=== PATIENT | male | born 1950 | race Two or more races ===

== ENCOUNTER 2018-07-05 10:46 | Inpatient (IN) | payer MEDICARE ==
[~2018-07-05] VITALS: Ht 177.8 cm; Wt 71.2 kg
--- NOTE | 2018-07-05 10:55 | NUR ---
BIB RA, PATIENT C/O CHEST PAIN X 30 MINUTES PRIOR TO EMS ARRIVAL.
[2018-07-05] MEDS ORDERED: ALBUTEROL FS 2.5 MG/3 ML VIAL.NEB NEB ONE (11:00)
[2018-07-05] MEDS ORDERED: IPRATROPIUM NEB FS 0.5 MG/2.5 ML AMPUL.NEB NEB ONE (11:00)
--- NOTE | 2018-07-05 11:00 | NUR ---
DR LAI AT BEDSIDE
[2018-07-05 11:22] LABS: BASOPHILS % (AUTO) 0.5 % (0.0-2.0); EOSINOPHILS % (AUTO) 1.3 % (0.0-6.0); HEMATOCRIT 37 % (39-51); HEMOGLOBIN 12.1 g/dL (13.5-17.5); LYMPHOCYTES # (AUTO) 0.5 /CMM (0.8-4.8); LYMPHOCYTES % (AUTO) 12.3 % (20.0-44.0); MEAN CORPUSCULAR HGB CONC 33 g/dl (31.0-36.0); MEAN CORPUSCULAR VOLUME 88 fL (80-96); MONOCYTES # (AUTO) 0.3 /CMM (0.1-1.30); MONOCYTES % (AUTO) 7.5 % (2.0-12.0); NEUTROPHILS # (AUTO) 3.5 /CMM (1.8-8.9); NEUTROPHILS % (AUTO) 78.4 % (43.0-81.0); PLATELET COUNT (AUTO) 189 /CMM (150-450); RED BLOOD CELL COUNT(AUTO) 4.17 MIL/uL (4.5-6.0); WHITE BLOOD COUNT (AUTO) 4.5 K/uL (4.3-11.0)
[2018-07-05] MEDS ORDERED: IPRATROPIUM NEB FS 0.5 MG/2.5 ML AMPUL.NEB ONE (11:26)
[2018-07-05] MEDS ORDERED: ALBUTEROL FS 2.5 MG/3 ML VIAL.NEB ONE (11:26)
--- NOTE | 2018-07-05 11:33 | NUR ---
PIV IV INSERTED ON LEFT LEG G 20.
[2018-07-05 11:41] LABS: CALCIUM, SERUM 8.8 mg/dL (8.5-10.1); CARBON DIOXIDE 30 mmol/L (21-32); CHLORIDE 100 mmol/L (98-107); CREATININE 0.9 mg/dL (0.6-1.3); GLUCOSE 171 mg/dL (74-106); POTASSIUM 4.1 mmol/L (3.5-5.1); SODIUM SERUM 136 mmol/L (136-145); UREA NITROGEN, BLOOD 16 mg/dL (7-18)
[2018-07-05 11:52] LABS: ALANINE AMINOTRANSFERASE 29 U/L (12-78); ALBUMIN 3.3 g/dL (3.4-5.0); ALKALINE PHOSPHATASE 112 U/L (46-116); ASPARTATE AMINOTRANSFERASE 23 U/L (15-37); BILIRUBIN,DIRECT 0.1 mg/dL (0.0-0.2); BILIRUBIN,TOTAL 0.3 mg/dL (0.2-1.0); TOTAL PROTEIN, SERUM 6.9 g/dL (6.4-8.2)
--- NOTE | 2018-07-05 12:24 | NUR ---
PANEL ON - CALL PAGED
[2018-07-05] MEDS ORDERED: MORPHINE SULFATE INJ 2 MG/ML DISP.SYRIN IV ONE (12:30)
[2018-07-05] MEDS ORDERED: MORPHINE SULFATE INJ 4 MG/ML DISP.SYRIN ONE (12:30)
--- NOTE | 2018-07-05 12:41 | NUR ---
PAGING PANEL ON-CALL
[2018-07-05] MEDS ORDERED: LORA-259 PO (12:42)
[2018-07-05] MEDS ORDERED: OXYC-454 PO (12:42)
[2018-07-05] MEDS ORDERED: OXYC40TA50 PO (12:42)
[2018-07-05 13:00] VITALS: BP 147/77
--- NOTE | 2018-07-05 13:33 | NUR ---
REPORT GIVEN TO ASPEN RODRIGUEZ FOR MELISSA
--- NOTE | 2018-07-05 13:47 | NUR ---
ADMISSION NOTE PT WAS RECEIVED AT THIS TIME FROM ER. NOTE TO HAVE IV IN RLE #20. A/O X4, AMBULATORY, CURRENTLY ASKING FOR PAIN MEDICATION. SAFETY PRECAUTIONS IN PLACE, CALL LIGHT WITHIN REACH, WILL MONITOR ACCORDINGLY
[2018-07-05] MEDS ORDERED: ONDANSETRON HCL/PF 4 MG/2 ML VIAL IVP PRN (14:00)
[2018-07-05] MEDS ORDERED: NITROGLYCERIN 0.4 MG/TAB BOTTLE SL PRN (14:00)
[2018-07-05] MEDS ORDERED: ACETAMINOPHEN 325 MG TABLET PO PRN (14:00)
[2018-07-05] MEDS ORDERED: MORPHINE SULFATE INJ 2 MG/ML DISP.SYRIN IV PRN (14:00)
[2018-07-05] MEDS: LORAZEPAM 1 MG TABLET PO PRN (14:05)
--- NOTE | 2018-07-05 14:05 | NUR ---
RN NOTE ATIVAN GIVEN AT THIS TIME
[2018-07-05] MEDS: ASPIRIN 81 MG TAB.CHEW PO SCH (14:24)
[2018-07-05] MEDS: METOPROLOL TARTRATE 25 MG TABLET PO SCH ×2 (14:25→17:06)
--- NOTE | 2018-07-05 14:31 | NUR ---
RN NOTE MORPHINE GIVEN AT THIS TIME DUE TO PT COMPLAINT OF CHEST PAIN OF 9 OUT OF 10
[2018-07-05] MEDS: oxyCODONE/APAP (5/325 MG) 1 UDTAB TABLET PO PRN ×2 (15:23→23:17)
--- NOTE | 2018-07-05 15:23 | NUR ---
RN NOTE PERCOCET GIVEN AT THIS TIME DUE TO PT COMPLAINT OF HEADACHE OF 9 OUT OF 10
[2018-07-05 16:00] VITALS: BP 148/82
[2018-07-05] MEDS: oxyCODONE HCL SR 20MG TAB.SR.12H PO PRN (17:12)
--- NOTE | 2018-07-05 17:12 | NUR ---
RN NOTE OXYCONTIN GIVEN AT THIS TIME
[2018-07-05] MEDS ORDERED: oxyCODONE HCL SR 40MG TAB.SR.12H PO PRN ×2 (17:30→21:00)
--- NOTE | 2018-07-05 18:25 | NUR ---
RN CLOSING NOTE PT IN BED AT LOWEST AND LOCKED POSITION, A/O X4, BREATHING EVEN AND UNLABORED, NO DISTRESS NOTED AT THIS TIME, IV IS PATENT AND INTACT, ALL NEEDS ATTENDED TO, SAFETY PRECAUTIONS IN PLACE, CALL LIGHT WITHIN REACH, WILL ENDORSE TO BOX PRESS OPERATOR RN FOR MELISSA.
--- NOTE | 2018-07-05 19:30 | NUR ---
RN NOTES RECEIVED PT. AWAKE ON BED, HEART MONITOR WAS ON STANDBY, NON-COMPLIANT, ALWAYS ASKING FOR PAIN MEDICATION, PAIN MEDICATION IS NOT DUE YET, HE'S TALKING TO HIS ROOM MATE WHAT PAIN MEDICATION HE'S GETTING AND GIVING ADVICE TO OTHER PATIENT WHAT KIND OF MEDICATION HE CAN ASK... CHARGE NURSE MADE AWARE ... WE'RE LOOKING FOR ANOTHER ROOM TO TRANSFER THIS PATIENT SINCE HE EXCHANGING NOTES TO HIS ROOM MATE REGARDING PAIN MEDICATION...
[2018-07-05 20:00] VITALS: BP 174/94
--- NOTE | 2018-07-05 23:13 | NUR ---
RN NOTES COMPLAINED OF BACK PAIN- PERCOCET 1 TAB PO GIVEN ORDERED, V/ STABLE
[2018-07-06] MEDS: LORAZEPAM 1 MG TABLET PO PRN (03:19)
--- NOTE | 2018-07-06 03:19 | NUR ---
RN NOTES PT. IS ASKING FOR ATIVAN AND STATED THAT HE'S FEELING ANXIOUS- ATIVAN 2 MG PO GIVEN ORDERED, V/S STABLE
[2018-07-06 04:00] VITALS: BP 166/94
[2018-07-06] MEDS: oxyCODONE HCL SR 20MG TAB.SR.12H PO PRN ×2 (05:10→11:15)
--- NOTE | 2018-07-06 05:13 | NUR ---
RN NOTES COMPLAINED OF GENERALIZED PAIN- PERCOCET 20MG PO GIVEN ORDERED, V/S STABLE
--- NOTE | 2018-07-06 06:35 | NUR ---
RN NOTES PT.COMPLAINED OF CHEAT PAIN ..BLOOD PRESSURE WAS CHECKED 119/69, PULSE 72... OFFERED NITRO 0.4MG SL FOR CHEST PAIN HE REFUSED AND THEN ASKED FOR BREAKFAST
--- NOTE | 2018-07-06 06:53 | NUR ---
RN NOTES RN NOTES AWAKE, MORNING CARE RENDERED, CALL LIGHT WITHIN REACH, [id number], PT. NEEDS ATTENDED
[2018-07-06 07:08] LABS: BASOPHILS % (AUTO) 0.7 % (0.0-2.0); EOSINOPHILS % (AUTO) 4.7 % (0.0-6.0); HEMATOCRIT 33 % (39-51); HEMOGLOBIN 11.1 g/dL (13.5-17.5); LYMPHOCYTES % (AUTO) 32.7 % (20.0-44.0); MEAN CORPUSCULAR HGB CONC 34 g/dl (31.0-36.0); MEAN CORPUSCULAR VOLUME 87 fL (80-96); MONOCYTES # (AUTO) 0.4 /CMM (0.1-1.30); MONOCYTES % (AUTO) 12.4 % (2.0-12.0); NEUTROPHILS # (AUTO) 1.6 /CMM (1.8-8.9); NEUTROPHILS % (AUTO) 49.5 % (43.0-81.0); PLATELET COUNT (AUTO) 189 /CMM (150-450); RED BLOOD CELL COUNT(AUTO) 3.75 MIL/uL (4.5-6.0); WHITE BLOOD COUNT (AUTO) 3.2 K/uL (4.3-11.0)
--- NOTE | 2018-07-06 07:30 | NUR ---
SCHOOL LABORATORY TECHNICIAN NOTES PATIENT RECEIVED RESTING INSIDE ROOM. AWAKE, ALERT AND ORIENTED X 3, VERBALLY RESPONSIVE AND RESPONDS TO VERBAL AND TACTILE STIMULI. BREATHING EVEN AND UNLABORED. NO ACUTE DISTRESS NOTED AT THIS TIME. PATIENT VERBALIZES FEELING OF PAIN ALL OVER, NO FACIAL GRIMACE NOTED AT THIS TIME, PATIENT FURTHER VERBALIZED, "I JUST HAD HYSTERECTOMY LAST WEEK, AND MY TUBES ARE STILL INTACT". PATIENT AMBULATORY. CONTINUE ON TELEMETRY, NSR 75. MD MADE AWARE. WILL CONTINUE TO MONITOR. BED LOCKED AND IN LOW POSITION. BILATERAL UPPER SIDE RAILS UP AND LOCKED. CALL LIGHT WITHIN EASY REACH
[2018-07-06 07:36] LABS: CALCIUM, SERUM 8.6 mg/dL (8.5-10.1); CREATININE 0.9 mg/dL (0.6-1.3); MAGNESIUM 1.9 mg/dL (1.8-2.4); POTASSIUM 4.3 mmol/L (3.5-5.1)
[2018-07-06 08:00] VITALS: BP 148/95
[2018-07-06] MEDS: ASPIRIN 81 MG TAB.CHEW PO SCH (08:35)
[2018-07-06] MEDS: oxyCODONE/APAP (5/325 MG) 1 UDTAB TABLET PO PRN (08:36)
[2018-07-06] MEDS ORDERED: LISINOPRIL (10MG) 10 MG TABLET PO SCH (09:00)
[2018-07-06] MEDS ORDERED: ATORVASTATIN 40 MG TABLET PO SCH (09:00)
[2018-07-06 11:15] VITALS: BP 143/87
[2018-07-06] MEDS ORDERED: METOPROLOL TARTRATE 25 MG TABLET PO SCH (12:00)
--- NOTE | 2018-07-06 12:35 | NUR ---
Social service consult requested by Dr. Geronimo for homelessness. Pt. is a 68 year old male who was admitted to [facility] for chest pain. SW met with pt. bedside. Pt. is alert and oriented x 4. Pt. is cooperative and pleasant with SW during the assessment. Pt. is from [place] and moved to [facility] recently. Pt. was staying in [facility] until he ran out of money. Pt. is willing to go to a SNF if deemed appropriate. Pt's emergency contact is Nayan Ladd . Pt. receives only $111/month. Pt. denies using cigarettes, alcohol and drugs. Pt. denies any psychiatric diagnoses or hospitalizations. No other social service needs are requested at this time. Pt. pt. is not deemed appropriate for SNF placement SW to offer pt. homeless custodial resources.
--- NOTE | 2018-07-06 13:00 | NUR ---
MS RN NOTES PATIENT FOR CT ANGIOGRAM OF HEART WITH 3D IMAGING. WITH MULTIPLE PIV ATTEMPTS WITH NO SUCCESS TO INSERT G18 OR G20. DR. VALLES MADE AWARE AND GAVE OK FOR MIDLINE INSERTION. ORDER NOTED AND CARRIED OUT. PATIENT MADE AWARE AND VERBALIZED UNDERSTANDING. NURSING SYSTEMS DESIGN ENGINEER MADE AWARE. PICCLINE NURSE MADE AWARE. WILL CONTINUE TO MONITOR
--- NOTE | 2018-07-06 15:19 | NUR ---
MS RN NOTES PATIENT VERBALIZED HE DOESNT WANT TO WAIT FOR CT ANGIOGRAM ANYMORE AND WANTS TO LEAVE HOSPITAL AGAINST MEDICAL ADVICE. ASKED NURSING STAFF TO GIVE HIM THE PAPER AND HE WILL SIGN IT. RISKS AND BENEFITS EXPLAINED TO BUT PATIENT BUT TO NO AVAIL, PATIENT STRONGLY INSISTED THAT HE WANTS TO LEAVE AMA. DR. VALLES MADE AWARE. AMA FORM SIGNED. ALL BELONGINGS COMPLETE ON DISCHARGE, NO REPORT OF MISSING INVENTORY. MIDLINE REMOVED WITH MINIMAL BLEEDING NOTED, PRESSURE DRESSING PLACED ON SITE. PATIENT LEFT UNIT AT 1500 AMBULATORY, ACCOMPANIED BY NURSING STAFF TO OUTSIDE HOSPITAL. PATIENT LEFT AND AMBULATED TO [facility]. LEFT IN STABLE CONDITION. BREATHING EVEN AND UNLABORED. DENIES ANY PAIN OR DISCOMFORT. NURSING LOADING MANAGER MADE AWARE. MADE AWARE.
--- NOTE | 2018-07-06 15:20 | NUR ---
MS RN NOTES ADDENDUM: NO NEW SKIN BREAKDOWN NOTED ON DISCHARGE
== END 2018-07-06 15:00 | disposition left against medical advice (07) | DRG 303 ==
LOC: ER 10:49 → TELE 13:44 → MED 07-06 08:50
PROVIDERS: ADMIT Internal Medicine; ATTEND Internal Medicine
PROC: 05H533Z Insertion of Infusion Device into Right Subclavian Vein, Percutaneous Approach (ICD-10-PCS; principal; 2018-07-06)
PROC: B546ZZA Ultrasonography of Right Subclavian Vein, Guidance (ICD-10-PCS; 2018-07-06)
DX: I25.110 Atherosclerotic heart disease of native coronary artery with unstable angina pectoris (principal); F41.9 Anxiety disorder, unspecified; G89.4 Chronic pain syndrome; I10 Essential (primary) hypertension; J44.9 Chronic obstructive pulmonary disease, unspecified; Z76.5 Malingerer [conscious simulation]
CPT/HCPCS: 36415; 36569; 71045-TC; 80048-TC; 80061-TC; 80076-TC; 83735-TC; 84100-TC; 84484-TC; 85025-TC; 85730-TC; 87081-TC; 93307-TC; G0378; J2270

== ENCOUNTER 2023-05-24 12:09 | Inpatient (IN) | payer MEDICARE, OTHER ==
[~2023-05-24] VITALS: Ht 177.8 cm; Wt 65.8 kg
[~2023-05-24 12:09] MED LIST: ACET325T53 PO; AMIN887L PO; ASCO500C17 PO; ATOR40TA PO; BISA10SU61 RC; DIVA500T2 PO; INSU100I4 SQ; IPRA3AMP23 IH; MAGN400O6 PO; MEGE400O4 PO; METF-442 PO; MULT-447 PO; PRED10TA PO
[2023-05-24 14:21] LABS: BASOPHILS # (AUTO) 0.1 K/uL (0.0-0.2); BASOPHILS % (AUTO) 0.7 % (0.0-2.0); EOSINOPHILS % (AUTO) 0.2 % (0.0-6.0); HEMATOCRIT 41 % (39-51); HEMOGLOBIN 13.4 g/dL (13.5-17.5); LYMPHOCYTES % (AUTO) 8.6 % (20.0-44.0); MEAN CORPUSCULAR HEMOGLOBIN 31 PG (26.0-33.0); MEAN CORPUSCULAR HGB CONC 33 g/dl (31.0-36.0); MEAN CORPUSCULAR VOLUME 94 fL (80-96); MONOCYTES # (AUTO) 0.4 K/uL (0.1-1.30); MONOCYTES % (AUTO) 3.3 % (2.0-12.0); NEUTROPHILS # (AUTO) 9.8 K/uL (1.8-8.9); NEUTROPHILS % (AUTO) 87.2 % (43.0-81.0); PLATELET COUNT (AUTO) 221 K/uL (150-450); RED BLOOD CELL COUNT(AUTO) 4.32 MIL/uL (4.5-6.0); RED CELL DISTRIBUTION WIDTH 15.2 % (11.5-15.0); WHITE BLOOD COUNT (AUTO) 11.2 K/uL (4.3-11.0)
[2023-05-24] MEDS ORDERED: APIX5TAB PO (14:32)
[2023-05-24] MEDS ORDERED: ACET100V5 IH (14:32)
[2023-05-24] MEDS ORDERED: INSU100V28 SQ (14:32)
[2023-05-24] MEDS ORDERED: PANT40TA2 PO (14:32)
[2023-05-24] MEDS ORDERED: LISI-768 PO (14:32)
[2023-05-24] MEDS ORDERED: NA P133E RC (14:32)
[2023-05-24] MEDS ORDERED: LORA-258 PO (14:32)
[2023-05-24] MEDS ORDERED: OXYC10TA49 PO (14:32)
[2023-05-24] MEDS ORDERED: ALBU2.5V38 IH (14:32)
[2023-05-24] MEDS ORDERED: OXYC10TA59 PO (14:32)
[2023-05-24] MEDS ORDERED: IPRA0.2S49 IH (14:32)
[2023-05-24] MEDS ORDERED: GLUC1KIT SQ (14:32)
[2023-05-24] MEDS ORDERED: NALO4SPR NS (14:32)
[2023-05-24 14:58] LABS: CALCIUM, SERUM 9.1 mg/dL (8.5-10.1); CREATININE 0.7 mg/dL (0.6-1.3); POTASSIUM 4.4 mmol/L (3.5-5.1)
[2023-05-24] MEDS ORDERED: ACETAMINOPHEN ES 500 MG TABLET ONE (18:28)
[2023-05-24] MEDS ORDERED: ACETAMINOPHEN ES 500 MG TABLET PO ONE (18:30)
[2023-05-24 19:18] LABS: LYMPHOCYTES % (MANUAL) 12 % (16-48); MONOCYTES % (MANUAL) 5 % (0-11.0); NEUTROPHILS % (MANUAL) 83 (42-76); PLATELET ESTIMATE ADEQUATE
[2023-05-24] MEDS ORDERED: DEXTROSE 50%-WATER 50 ML DISP.SYRIN IV PRN (20:30)
[2023-05-24] MEDS ORDERED: ACETAMINOPHEN 325 MG TABLET PO PRN (20:30)
[2023-05-24] MEDS ORDERED: IV NS 0.9% 1,000 ML IV PRN (20:30)
[2023-05-24] MEDS ORDERED: ALBUTEROL FS 2.5 MG/0.5 ML VIAL.NEB NEB PRN (20:30)
[2023-05-24] MEDS ORDERED: ONDANSETRON HCL/PF 4 MG/2 ML VIAL IVP PRN (20:30)
[2023-05-24] MEDS ORDERED: DIVALPROEX SODIUM 500 MG TABLET.DR PO ONE (21:15)
[2023-05-24] MEDS ORDERED: ATORVASTATIN 40 MG TABLET ONE (21:16)
[2023-05-24] MEDS ORDERED: LORAZEPAM 0.5 MG TABLET ONE (21:20)
[2023-05-24] MEDS: DIVALPROEX SODIUM 500 MG TABLET.DR PO SCH (21:32)
[2023-05-24] MEDS: LORAZEPAM 0.5 MG TABLET PO PRN (21:32)
[2023-05-24] MEDS: ATORVASTATIN 40 MG TABLET PO SCH (21:32)
[2023-05-24] MEDS: BLOOD SUGAR DIAGNOSTIC 1 EACH STRIP VI SCH (22:35)
[2023-05-25] MEDS ORDERED: hydrALAZINE HCL IV 20 MG VIAL ONE ×2 (00:15→05:33)
[2023-05-25] MEDS: hydrALAZINE HCL IV 20 MG VIAL IV PRN ×2 (00:24→06:34)
[2023-05-25] MEDS: DIVALPROEX SODIUM 500 MG TABLET.DR PO SCH ×3 (05:30→20:35)
[2023-05-25] MEDS ORDERED: LORAZEPAM 0.5 MG TABLET ONE ×2 (05:33→13:00)
[2023-05-25] MEDS ORDERED: DIVALPROEX SODIUM 500 MG TABLET.DR PO ONE ×2 (05:33→12:50)
[2023-05-25] MEDS: IPRATROPIUM/ALBUTEROL INHALER IH SCH ×2 (06:00)
[2023-05-25] MEDS: LORAZEPAM 0.5 MG TABLET PO PRN ×3 (06:34→20:35)
[2023-05-25] MEDS: BLOOD SUGAR DIAGNOSTIC 1 EACH STRIP VI SCH ×4 (07:30→22:00)
[2023-05-25] MEDS: PANTOPRAZOLE 40 MG TABLET.DR PO SCH (07:30)
[2023-05-25] MEDS ORDERED: PANTOPRAZOLE 40 MG VIAL ONE (08:26)
[2023-05-25] MEDS ORDERED: APIXABAN 5 MG TABLET ONE (08:26)
[2023-05-25] MEDS ORDERED: DOCUSATE SODIUM 100 MG CAPSULE PO ONE (08:27)
[2023-05-25] MEDS: DOCUSATE SODIUM LIQ 100 MG/10 ML UDC PO SCH ×2 (08:54→18:01)
[2023-05-25] MEDS: APIXABAN 5 MG TABLET PO SCH ×2 (08:54→18:03)
[2023-05-25] MEDS: LISINOPRIL (5MG) 5 MG TABLET PO SCH (09:06)
[2023-05-25] MEDS: POLYETHYLENE GLYCOL 3350 17 GM POWD.PACK PO SCH (09:06)
[2023-05-25 09:42] LABS: BASOPHILS # (AUTO) 0.1 K/uL (0.0-0.2); BASOPHILS % (AUTO) 0.4 % (0.0-2.0); EOSINOPHILS # (AUTO) 0.1 K/uL (0.0-0.7); EOSINOPHILS % (AUTO) 0.5 % (0.0-6.0); HEMATOCRIT 44 % (39-51); HEMOGLOBIN 14.6 g/dL (13.5-17.5); LYMPHOCYTES # (AUTO) 1.8 K/uL (0.8-4.8); LYMPHOCYTES % (AUTO) 13.7 % (20.0-44.0); MEAN CORPUSCULAR HEMOGLOBIN 31 PG (26.0-33.0); MEAN CORPUSCULAR HGB CONC 34 g/dl (31.0-36.0); MEAN CORPUSCULAR VOLUME 92 fL (80-96); MONOCYTES % (AUTO) 7.8 % (2.0-12.0); NEUTROPHILS # (AUTO) 10.1 K/uL (1.8-8.9); NEUTROPHILS % (AUTO) 77.6 % (43.0-81.0); PLATELET COUNT (AUTO) 260 K/uL (150-450); RED BLOOD CELL COUNT(AUTO) 4.73 MIL/uL (4.5-6.0); RED CELL DISTRIBUTION WIDTH 15.1 % (11.5-15.0)
[2023-05-25 09:54] LABS: ALANINE AMINOTRANSFERASE 19 U/L (12-78); ALKALINE PHOSPHATASE 78 U/L (46-116); ASPARTATE AMINOTRANSFERASE 15 U/L (15-37); BILIRUBIN,TOTAL 0.6 mg/dL (0.2-1.0); CALCIUM, SERUM 9.2 mg/dL (8.5-10.1); CARBON DIOXIDE 28 mmol/L (21-32); CHLORIDE 93 mmol/L (98-107); CREATININE 0.5 mg/dL (0.6-1.3); GLUCOSE 111 mg/dL (74-106); MAGNESIUM 1.5 mg/dL (1.8-2.4); PHOSPHORUS 4.2 mg/dL (2.5-4.9); POTASSIUM 3.7 mmol/L (3.5-5.1); SODIUM SERUM 130 mmol/L (136-145); TOTAL PROTEIN, SERUM 7.2 g/dL (6.4-8.2); UREA NITROGEN, BLOOD 12 mg/dL (7-18)
[2023-05-25] MEDS ORDERED: ALBUTEROL FS 2.5 MG/0.5 ML VIAL.NEB ONE (13:37)
[2023-05-25] MEDS ORDERED: IPRATROPIUM NEB FS 0.5 MG/2.5 ML AMPUL.NEB ONE (13:37)
[2023-05-25] MEDS: ALBUTEROL FS 2.5 MG/0.5 ML VIAL.NEB HHN SCH ×2 (13:43→20:22)
[2023-05-25] MEDS: IPRATROPIUM NEB FS 0.5 MG/2.5 ML AMPUL.NEB NEB SCH ×2 (13:43→20:22)
[2023-05-25 13:44] VITALS: O2SAT 94
[2023-05-25 13:59] VITALS: O2SAT 97
[2023-05-25 18:53] VITALS: BP 129/119; TEMP 98.2; O2SAT 97
[2023-05-25 20:19] VITALS: O2SAT 92
[2023-05-25 20:24] VITALS: O2SAT 92
[2023-05-25] MEDS: ATORVASTATIN 40 MG TABLET PO SCH (20:35)
[2023-05-25] MEDS: *INSULIN REGULAR(HUMULIN R)HUM 100 UNIT/ML VIAL SQ PRN ×2 (20:55→21:05)
[2023-05-26] VITALS (7 sets, daily range): BP systolic 156; BP diastolic 90; TEMP 98.2; O2SAT 93–100
[2023-05-26] MEDS: ALBUTEROL FS 2.5 MG/0.5 ML VIAL.NEB HHN SCH ×4 (01:30→20:16)
[2023-05-26] MEDS: IPRATROPIUM NEB FS 0.5 MG/2.5 ML AMPUL.NEB NEB SCH ×4 (01:30→20:16)
[2023-05-26] MEDS: MORPHINE SULFATE INJ 2 MG/ML DISP.SYRIN IV PRN ×4 (02:37→20:59)
[2023-05-26] MEDS: DIVALPROEX SODIUM 500 MG TABLET.DR PO SCH ×3 (05:14→21:01)
[2023-05-26] MEDS: LORAZEPAM 0.5 MG TABLET PO PRN ×2 (05:14→18:49)
[2023-05-26 06:56] LABS: BASOPHILS # (AUTO) 0.1 K/uL (0.0-0.2); BASOPHILS % (AUTO) 0.9 % (0.0-2.0); EOSINOPHILS # (AUTO) 0.1 K/uL (0.0-0.7); HEMATOCRIT 42 % (39-51); HEMOGLOBIN 14.3 g/dL (13.5-17.5); LYMPHOCYTES # (AUTO) 1.8 K/uL (0.8-4.8); LYMPHOCYTES % (AUTO) 17.2 % (20.0-44.0); MEAN CORPUSCULAR HEMOGLOBIN 32 PG (26.0-33.0); MEAN CORPUSCULAR HGB CONC 34 g/dl (31.0-36.0); MEAN CORPUSCULAR VOLUME 92 fL (80-96); MONOCYTES # (AUTO) 0.9 K/uL (0.1-1.30); MONOCYTES % (AUTO) 8.5 % (2.0-12.0); NEUTROPHILS # (AUTO) 7.5 K/uL (1.8-8.9); NEUTROPHILS % (AUTO) 72.4 % (43.0-81.0); PLATELET COUNT (AUTO) 260 K/uL (150-450); RED BLOOD CELL COUNT(AUTO) 4.53 MIL/uL (4.5-6.0); RED CELL DISTRIBUTION WIDTH 15.3 % (11.5-15.0); WHITE BLOOD COUNT (AUTO) 10.3 K/uL (4.3-11.0)
[2023-05-26 07:17] LABS: CALCIUM, SERUM 9.6 mg/dL (8.5-10.1); CREATININE 0.6 mg/dL (0.6-1.3); MAGNESIUM 1.6 mg/dL (1.8-2.4); PHOSPHORUS 5.1 mg/dL (2.5-4.9); POTASSIUM 3.7 mmol/L (3.5-5.1)
[2023-05-26] MEDS: BLOOD SUGAR DIAGNOSTIC 1 EACH STRIP VI SCH ×4 (07:30→21:05)
[2023-05-26 07:34] LABS: THYROID STIMULATING HORMONE 1.376 uIU/mL (0.358-3.74); URIC ACID 4.9 mg/dL (2.6-7.2)
[2023-05-26] MEDS: LISINOPRIL (5MG) 5 MG TABLET PO SCH (08:29)
[2023-05-26] MEDS: DOCUSATE SODIUM LIQ 100 MG/10 ML UDC PO SCH ×2 (08:29→16:32)
[2023-05-26] MEDS: PANTOPRAZOLE 40 MG TABLET.DR PO SCH (08:29)
[2023-05-26] MEDS: POLYETHYLENE GLYCOL 3350 17 GM POWD.PACK PO SCH (08:30)
[2023-05-26] MEDS: *INSULIN REGULAR(HUMULIN R)HUM 100 UNIT/ML VIAL SQ PRN ×2 (08:31→21:09)
[2023-05-26] MEDS: APIXABAN 5 MG TABLET PO SCH ×2 (08:32→16:31)
[2023-05-26] MEDS: METOPROLOL TARTRATE 25 MG TABLET PO SCH ×2 (09:59→21:01)
[2023-05-26] MEDS ORDERED: MAGNESIUM OXIDE 400 MG TABLET PO ONE (11:00)
[2023-05-26] MEDS: MAGNESIUM OXIDE 400 MG TABLET PO SCH ×2 (11:15→21:01)
[2023-05-26 11:26] LABS: LYMPHOCYTES % (MANUAL) 14 % (16-48); NEUTROPHILS % (MANUAL) 75 (42-76)
[2023-05-26 11:27] LABS: ANISOCYTOSIS 1+; BASOPHILS % (MANUAL) 0 % (0.0-2.0); EOSINOPHILS % (MANUAL) 2 % (0-4); MONOCYTES % (MANUAL) 9 % (0-11.0); PLATELET ESTIMATE ADEQUATE
[2023-05-26] MEDS: INSULIN REGULAR, HUMAN 100 UNIT/ML 3 ML VIAL SQ PRN (12:24)
[2023-05-26] MEDS: GLUCERNA SHAKE 237 ML CAN PO SCH (16:31)
[2023-05-26] MEDS: ATORVASTATIN 40 MG TABLET PO SCH (21:01)
[2023-05-27] VITALS (8 sets, daily range): BP systolic 153–170; BP diastolic 76–97; TEMP 97.6–98; O2SAT 92–99
[2023-05-27] MEDS: MORPHINE SULFATE INJ 2 MG/ML DISP.SYRIN IV PRN ×4 (01:16→14:06)
[2023-05-27] MEDS: IPRATROPIUM NEB FS 0.5 MG/2.5 ML AMPUL.NEB NEB SCH ×3 (02:23→13:30)
[2023-05-27] MEDS: ALBUTEROL FS 2.5 MG/0.5 ML VIAL.NEB HHN SCH ×3 (02:23→13:30)
[2023-05-27] MEDS: LORAZEPAM 0.5 MG TABLET PO PRN ×2 (03:00→11:01)
[2023-05-27] MEDS: DIVALPROEX SODIUM 500 MG TABLET.DR PO SCH ×2 (05:09→12:11)
[2023-05-27] MEDS: PANTOPRAZOLE 40 MG TABLET.DR PO SCH (07:39)
[2023-05-27] MEDS: BLOOD SUGAR DIAGNOSTIC 1 EACH STRIP VI SCH ×2 (07:43→11:59)
[2023-05-27 08:11] LABS: BASOPHILS % (AUTO) 0.4 % (0.0-2.0); EOSINOPHILS # (AUTO) 0.1 K/uL (0.0-0.7); EOSINOPHILS % (AUTO) 1.1 % (0.0-6.0); HEMATOCRIT 38 % (39-51); HEMOGLOBIN 13.1 g/dL (13.5-17.5); LYMPHOCYTES # (AUTO) 1.2 K/uL (0.8-4.8); LYMPHOCYTES % (AUTO) 13.7 % (20.0-44.0); MEAN CORPUSCULAR HEMOGLOBIN 32 PG (26.0-33.0); MEAN CORPUSCULAR HGB CONC 34 g/dl (31.0-36.0); MEAN CORPUSCULAR VOLUME 93 fL (80-96); MONOCYTES # (AUTO) 0.9 K/uL (0.1-1.30); MONOCYTES % (AUTO) 9.9 % (2.0-12.0); NEUTROPHILS # (AUTO) 6.7 K/uL (1.8-8.9); NEUTROPHILS % (AUTO) 74.9 % (43.0-81.0); PLATELET COUNT (AUTO) 248 K/uL (150-450); RED BLOOD CELL COUNT(AUTO) 4.14 MIL/uL (4.5-6.0); RED CELL DISTRIBUTION WIDTH 15.4 % (11.5-15.0)
[2023-05-27 08:12] LABS: CALCIUM, SERUM 9.3 mg/dL (8.5-10.1); CREATININE 0.6 mg/dL (0.6-1.3); POTASSIUM 3.5 mmol/L (3.5-5.1)
[2023-05-27] MEDS: METOPROLOL TARTRATE 25 MG TABLET PO SCH (08:30)
[2023-05-27] MEDS: DOCUSATE SODIUM LIQ 100 MG/10 ML UDC PO SCH ×2 (08:30→16:50)
[2023-05-27] MEDS: POLYETHYLENE GLYCOL 3350 17 GM POWD.PACK PO SCH (08:30)
[2023-05-27] MEDS: GLUCERNA SHAKE 237 ML CAN PO SCH ×2 (08:30→16:50)
[2023-05-27] MEDS: INSULIN REGULAR, HUMAN 100 UNIT/ML 3 ML VIAL SQ PRN ×2 (08:33→12:11)
[2023-05-27] MEDS: APIXABAN 5 MG TABLET PO SCH ×2 (08:34→16:50)
[2023-05-27] MEDS ORDERED: METO50TA16 PO (12:42)
[2023-05-27] MEDS: hydrALAZINE HCL IV 20 MG VIAL IV PRN (16:55)
== END 2023-05-27 17:25 | DRG 640 ==
LOC: ER 12:12 → TRANSITION 21:39 → TELE1 05-25 15:35 → MEDSG1 05-25 15:41
PROVIDERS: ADMIT Internal Medicine; ATTEND Internal Medicine
DX: E86.0 Dehydration (principal); G93.41 Metabolic encephalopathy; R65.11 Systemic inflammatory response syndrome (SIRS) of non-infectious origin with acute organ dysfunction; E22.2 Syndrome of inappropriate secretion of antidiuretic hormone; E44.0 Moderate protein-calorie malnutrition; F03.93 Unspecified dementia, unspecified severity, with mood disturbance; I48.91 Unspecified atrial fibrillation; R62.7 Adult failure to thrive; D64.9 Anemia, unspecified; I10 Essential (primary) hypertension; Z98.890 Other specified postprocedural states; Z79.4 Long term (current) use of insulin; Z88.8 Allergy status to other drugs, medicaments and biological substances; Z79.84 Long term (current) use of oral hypoglycemic drugs; Z79.899 Other long term (current) drug therapy; Z79.01 Long term (current) use of anticoagulants; Z79.51 Long term (current) use of inhaled steroids; J44.9 Chronic obstructive pulmonary disease, unspecified; E78.5 Hyperlipidemia, unspecified; E11.9 Type 2 diabetes mellitus without complications; E86.1 Hypovolemia; E86.9 Volume depletion, unspecified; E83.42 Hypomagnesemia; F31.9 Bipolar disorder, unspecified; E88.09 Other disorders of plasma-protein metabolism, not elsewhere classified; D72.829 Elevated white blood cell count, unspecified
CPT/HCPCS: 36415; 71045-TC; 80048-TC; 80053-TC; 82962-TC; 83735-TC; 84100-TC; 84443-TC; 84550-TC; 85025-TC; 87081-TC; 97112-TC; 97530-TC; A4223; C9113; G0378; J0360; J1815; J2270; J7030